=== PATIENT | male | born 1995 | race Caucasian/White ===

== ENCOUNTER → 2020-05-26 12:17 | Outpatient (BNVA) | payer OTHER, SELFPAY | PROVIDERS: Family Provider Family Medicine; PCP Family Medicine; Visit Provider Nurse Practitioner Family | DX: J02.9 Acute pharyngitis, unspecified (principal); J45.901 Unspecified asthma with (acute) exacerbation | CPT/HCPCS: 87071; 87880 ==

== ENCOUNTER → 2020-09-14 13:37 | Outpatient (BNVA) | payer OTHER, SELFPAY | PROVIDERS: Family Provider Family Medicine; PCP Family Medicine; Visit Provider Nurse Practitioner Family | DX: M79.672 Pain in left foot (principal) | CPT/HCPCS: 73630 ==

== ENCOUNTER → 2021-04-13 13:21 | Outpatient (BNVA) | payer OTHER, SELFPAY | PROVIDERS: Family Provider Family Medicine; PCP Family Medicine; Visit Provider Registered Nurse Neonatal Intensive Care | DX: M25.562 Pain in left knee (principal) | CPT/HCPCS: 73562 ==

== ENCOUNTER → 2022-06-06 11:26 | Outpatient (BNVA) | payer BC, SELFPAY | PROVIDERS: Family Provider Family Medicine; PCP Family Medicine; Visit Provider Emergency Medicine | DX: H93.90 Unspecified disorder of ear, unspecified ear (principal); H66.003 Acute suppurative otitis media without spontaneous rupture of ear drum, bilateral; J20.9 Acute bronchitis, unspecified | CPT/HCPCS: 87071; 87880 ==

== ENCOUNTER 2022-10-24 23:27 | Emergency (ER) | payer BC, SELFPAY ==
--- NOTE | 2022-10-24 23:29 | XRR_ITS ---
PROCEDURE INFORMATION: Exam: XR Right Hand Exam date and time: 10/24/2022 11:35 PM Age: 26 years old Clinical indication: Injury or trauma; Fall; Blunt trauma (contusions or hematomas); Hand; Right; Additional info: Right hand injury TECHNIQUE: Imaging protocol: Radiologic exam of the right hand. Views: 3 or more views. COMPARISON: No relevant prior studies available. FINDINGS: Bones/joints: Normal. Soft tissues: Normal. XR/XR hand RT min 3V* [id number] IMPRESSION: No acute findings.
[2022-10-24 23:42] VITALS: BP 162/97; PULSE 77; RESP 16; TEMP 36.6; O2SAT 94; BMI 37.3
[2022-10-25 02:00] VITALS: PULSE 80; RESP 16; O2SAT 94
[2022-10-25] MEDS: oxyCODONE-APAP 5-325 mg Tablet 2 TAB PO (02:08)
[2022-10-25 02:37] VITALS: PULSE 80; RESP 16; O2SAT 94
--- NOTE | 2022-10-25 22:33 | ED_ITS ---
HPI - Extremity Problem General: Chief complaint: Extremity Injury, Upper Stated complaint: RIGHT HAND INJURY Time Seen by Provider: 10/25/22 01:53 Source: patient History of Present Illness: 26 year old male comes in with a right hand injury. He states that he was working on something at home, and jammed his right thumb. His pain is mostly located over the right first MCP. It radiates proximally. MD Complaint: extremity pain Onset (ago): hour(s) Pain Consistency: constant Location: right and upper extremity (thumb) Quality: aching Radiation: proximal Relieving factors: immobilization Exacerbating factors: range of motion Associated symptoms: Deny chest pain, fever(s), rash or short of breath Review of Systems Const: Denies: fever(s) ENMT: Denies: throat pain Card: Denies: chest pain Resp: Denies: dyspnea GI: Denies: abdominal pain, nausea or vomiting Musc: Denies: neck pain Skin/Breast: Denies: rash PFSH ED PFSH: Social History Smoking and tobacco status: current every day smoker Alcohol intake: never Physical Exam Const: COMMON NORMALS: no acute distress GENERAL APPEARANCE: cooperative ORIENTATION/CONSCIOUSNESS: Yes awake HENMT: COMMON NORMALS: normocephalic and atraumatic HEAD & SCALP: normocephalic and atraumatic FACE & SINUS: normal facial exam Eye: COMMON NORMALS: Equal, round and reactive pupils present and EOMs intact bilaterally PUPIL: Yes Equal, round and reactive pupils present Chest: CHEST: Yes Symmetrical chest wall rise Resp: COMMON NORMALS: normal respiratory effort, No retractions and No use of accessory muscles Cardio: COMMON NORMALS: regular rate and regular rhythm RATE: regular rate RHYTHM: regular rhythm OTHER: 2+ RADIAL PULSE Neuro: SENSORY EXAM: Yes extremities (intact) Course Vital Signs: Vital signs: Vital Signs Temperature 97.8 F 10/24/22 23:42 Pulse Rate 80 10/25/22 02:37 Respiratory Rate 16 10/25/22 02:37 Blood Pressure 162/97 10/24/22 23:42 Pulse Oximetry 94 10/25/22 02:37 Oxygen Delivery Me thod 10/25/22 02:00 MDM - Extremity (Nontraumatic) Medical Decision Making X-ray reveals no fracture. His ligament of testing is guarded, but he may have an ulnar collateral ligament sprain. He'll be placed in a Julian brace immobilizing the thumb. And he'll stay in this until he follows up with his primary physician in a week or so. He is to return for any alarming symptoms. Lab Data Radiology Impressions Hand X-Ray 10/24/22 23:29 IMPRESSION: No acute findings. Discharge Plan Discharge Patient Disposition: Home Clinical Impression: Finger sprain Qualifiers: Encounter type: initial encounter Finger: thumb Sprain of finger site: metacarpophalangeal joint Laterality: right Qualified Code(s): S63.641A - Sprain of metacarpophalangeal joint of right thumb, initial encounter Condition: Stable Prescriptions: New ketorolac 10 mg tablet 10 mg PO TID PRN (Reason: pain) Qty: 10 0RF No Action albuterol sulfate 2.5 mg/0.5 mL solution for nebulization 2.5 mg inhalation ONCE Qty: 1 0RF neomycin-polymyxin B-dexameth [Maxitrol] 3.5mg/mL-10,000 unit/mL-0.1 % drops,suspension 1 drp ophthalmic (eye) Q3H Qty: 5 0RF Discharge Orders: Discharge ED (Routine); Ordered 10/25/22 Ordered By: Johnathon Leung Patient Instructions: Finger Sprain (ED) Activity Restrictions/Additional Instructions: Take the prescription you were given for your splints to a medical supply company (such as [facility] across the street from the hospital) to get filled. Wear the splint at all times except to shower until you see your doctor in follow- up. See your doctor in 1 week for repeat exam. ICE frequently, especially for the first 3 days. Coding Level of Care Code ED Injection Molding Machine Tender for José Fernández
--- NOTE | 2022-11-01 16:39 | DCPLANNER ---
10.30.22 - patient called due to no primary care physician - voicemail left for patient to return phone call. 10.31.22 - patient called due to no primary care physician - voicemail left for patient to return phone call.
== END 2022-10-25 02:11 | disposition home or self-care (01) ==
PROVIDERS: Emergency Provider Emergency Medicine
DX: S63.641A Sprain of metacarpophalangeal joint of right thumb, initial encounter (principal); W23.0XXA Caught, crushed, jammed, or pinched between moving objects, initial encounter
CPT/HCPCS: 73130; 99283

== ENCOUNTER → 2023-01-14 09:11 | Outpatient (BNVA) | payer BC, SELFPAY | PROVIDERS: PCP Family Medicine; Visit Provider Family Medicine | DX: Z68.36 Body mass index [BMI] 36.0-36.9, adult (principal) | CPT/HCPCS: 80053; 80061; 85025 ==

== ENCOUNTER → 2023-06-29 18:33 | Outpatient (BNVA) | payer BC, SELFPAY | PROVIDERS: PCP Family Medicine; Visit Provider Family Medicine | DX: R05.9 Cough, unspecified (principal); J06.9 Acute upper respiratory infection, unspecified; B96.89 Other specified bacterial agents as the cause of diseases classified elsewhere; R11.0 Nausea | CPT/HCPCS: 87400 ==

== ENCOUNTER 2024-03-12 18:03 | Emergency (ER) | payer BC, SELFPAY ==
[2024-03-12 18:04] VITALS: BP 153/101; PULSE 67; TEMP 36.4; O2SAT 98; BMI 38.0
--- NOTE | 2024-03-12 18:04 | ECG_ITS ---
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 Measurements Intervals [place] Rate: 69 P: 49 TX: 179 QRS: 56 QRSD: 105 T: 38 QT: 383 QTc: 413 Interpretive Statements SINUS RHYTHM POSSIBLE ANTERIOR MYOCARDIAL INFARCTION , OF INDETERMINATE AGE [30 ms Q WAVE IN V3/V4, OR R < 0.2 mV IN V4] INTERPRETATION BASED ON A DEFAULT AGE OF 40 YEARS No previous ECG available for comparison Electronically Signed On 03-13-2024 8:29:24 CDT by Ej Sandy M.D. [email or web address] [email or web address]/[id number] f
--- NOTE | 2024-03-12 18:06 | XRR_ITS ---
PROCEDURE INFORMATION: Exam: XR Chest Exam date and time: 03/12/2024 6:58 PM Age: 28 years old Clinical indication: Pain; Chest pressure; Additional info: Cp TECHNIQUE: Imaging protocol: Radiologic exam of the chest. Views: 1 view. COMPARISON: No relevant prior studies available. FINDINGS: Lungs: Unremarkable. No consolidation or mass. Pleural spaces: Unremarkable. No pleural effusion. No pneumothorax. Heart/Mediastinum: Unremarkable. No cardiomegaly. Bones/joints: Unremarkable. XR/XR chest 1V portable [id number] IMPRESSION: No acute findings.
[2024-03-12 18:20] LABS: Basophils % 0.2 %; Eosinophils % 0.2 %; Hematocrit 40.1 % (37-53); Lymphocytes # 1.2 10^3/uL (0.8-4.8); Lymphocytes % 19.6 %; Mean Corpuscular HGB Conc 34.4 g/dL (30-55); Mean Corpuscular Hemoglobin 30.4 pg (27-33); Mean Corpuscular Volume 88.3 fl (82-101); Monocytes # 0.4 10^3/uL (0.2-0.9); Monocytes % 7.1 %; Neutrophils % 72.6 %; Nucleated Red Blood Cells % 0 %; Platelet Count 142 10^3/cmm (157-399); Red Blood Count 4.54 10^6/uL (3.85-5.65); Red Cell Distribution Width 12.8 % (12.1-15.1); White Blood Count 5.92 10^3/uL (3.29-11.43)
[2024-03-12 18:40] LABS: Troponin(5th) Baseline 12 ng/L (0-15)
[2024-03-12 18:48] LABS: Alanine Aminotransferase 19 U/L (0-41); Albumin Level 3.7 g/dL (3.5-5.2); Alkaline Phosphatase 86 U/L (40-130); Anion Gap 13.6 (5-19); Aspartate Amino Transferase 18 U/L (0-40); Blood Urea Nitrogen 12 mg/dL (6-20); Calcium 8.7 mg/dL (8.5-10.5); Carbon Dioxide 26 mmol/L (22-29); Chloride 106 mmol/L (98-107); Creatinine Clr Calc Pharmacy 135.2256; Globulin 1.9 g/dL (1.3-4.6); Glomerular Filtration Rate 78.6 mL/min (90-130); Glucose 99 mg/dL (65-115); Lipase 31 U/L (13-60); Osmolality Calculated 294 mOsm/kg (285-295); Potassium 3.6 mmol/L (3.5-5.1); Sodium 142 mmol/L (136-145); Total Bilirubin 0.7 mg/dL (0.15-1.2); Total Protein 5.6 g/dL (6.6-8.7)
--- NOTE | 2024-03-12 20:06 | ECG_ITS ---
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 Measurements Intervals [place] Rate: 47 P: 36 MA: 172 QRS: 62 QRSD: 101 T: 60 QT: 427 QTc: 380 Interpretive Statements SINUS BRADYCARDIA Compared to ECG 03/12/2024 18:04:44 Sinus rhythm no longer present Myocardial infarct finding no longer present Electronically Signed On 03-13-2024 8:30:32 CDT by Ej Sandy M.D. [id number]
[2024-03-12 20:10] VITALS: BP 146/93; PULSE 65; RESP 18; O2SAT 95
[2024-03-12 20:22] LABS: Troponin 5 2HR 10.98 ng/L (0-15)
[2024-03-12 20:24] LABS: Troponin 5 2HR Delta -1.02 ABS# (0-10)
[2024-03-12 20:30] VITALS: BP 143/92; PULSE 59; RESP 19; O2SAT 93
[2024-03-12 20:31] LABS: D Dimer 0.43 ug/mLFEU (0-0.59)
--- NOTE | 2024-03-12 20:31 | ED_ITS ---
HPI - Chest Pain 2 General: Chief Complaint: Chest Pain Stated Complaint: CP/Tightmess Time Seen by Provider: 03/12/24 20:09 Source: patient Mode of arrival: ambulatory Limitations: no limitations History of Present Illness: 28-year-old male states manage some ches t pain shortness of breath since yesterday. He states that he been having pain with inspiration he had a slight cough and nausea he denies any fever states the pains he has been having is sharp in nature had some dyspnea as well. No recent travel no recent surgery. No history of DVT Associated symptoms: Reports dyspnea; Deny abdominal pain, fever(s), nausea or vomiting Review of Systems 2 Const: Denies: fever(s), chills, body aches or change in appetite ENMT: Denies: throat pain or dental pain Card: Reports: chest pain Resp: Reports: dyspnea GI: Denies: abdominal pain, nausea, vomiting or diarrhea : Denies: dysuria Musc: Denies: neck pain or back pain Skin/Breast: Denies: rash Neuro: Denies: headache(s) PFSH ED 2 PFSH: Medical History GERD (gastroesophageal reflux disease) Asthma Surgical History No pertinent past surgical history Family History Father Diabetes GERD (gastroesophageal reflux disease) Stroke Mother Chronic kidney disease (CKD) Cancer kidney Other CAD (coronary artery disease) Dementia Hyperlipidemia Hypertension Lung disease Denies family history of Clotting disorder Psychiatric illness Anesthesia complication Bleeding disorder Social History Smoking and tobacco/nicotine status: current every day tobacco/nicotine user Quit status (tobacco/nicotine): has quit using Former quit date comment: 01/2023 Alcohol intake: never Substance/Drug Use: never Lives independently: Yes Marital status: Number of children: 2 Current occupational status: employed Current occupation: [employer] Special terrie needs: No Agree to transfusion: Yes Physical Exam 2 Const: COMMON NORMALS: no acute distress, patient oriented x3 and healthy appearing HENMT: COMMON NORMALS: normocephalic and atraumatic HEAD & SCALP: n ormocephalic and atraumatic Neck/C-Spine: COMMON NORMALS: full ROM and supple Chest: COMMONS NORMALS: normal inspection of the chest Resp: COMMON NORMALS: normal respiratory effort, No retractions, No use of accessory muscles and clear to auscultation bilaterally AUSCULTATION: clear to auscultation bilaterally Cardio: COMMON NORMALS: regular rate, regular rhythm and No murmurs present (Cardio) RATE: regular rate RHYTHM: regular rhythm GI: COMMON NORMALS: Normal to inspection, nondistended, normoactive bowel sounds present, Soft to palpation, non-tender and no masses PALPATION: Yes Soft to palpation Extremity: COMMON NORMALS: normal to inspection and full ROM Neuro: COMMON NORMALS: patient oriented x3, moves all extremities and no focal motor deficits Psych: COMMON NORMALS: mental status grossly normal, Normal thought process present and cooperative THOUGHT PROCESS: Normal thought process present Skin: COMMON NORMALS: no rashes or lesions noted and no wounds GENERAL SKIN EXAM: no rashes or lesions noted Course 2 Vital Signs: Vital signs: Vital Signs Temperature 97.5 F L 03/12/24 18:04 Pulse Rate 67 03/12/24 18:04 Blood Pressure 153/101 03/12/24 18:04 Pulse Oximetry 98 03/12/24 18:04 Oxygen Delivery Me thod Room Air 03/12/24 18:04 MDM - Chest Pain Medical Decision Making Patient presents here with chest pains atypical in nature is likely pleuritic in nature D-dimer troponins here are negative x-ray shows no signs of pneumonia patient stable for discharge she is to follow-up with PCP and return if worsening. Medical Records I reviewed the patient's medical records. Lab Data I reviewed the patient's lab results. 03/12/24 18:15 03/12/24 18:15 Radiology Impressions Chest X-Ray 03/12/24 18:06 IMPRESSION: No acute findings. Laboratory Results WBC 5.92 10^3/uL (3.29-11.43) 03/12/24 18:15 RBC 4.54 10^6/uL (3.85-5.65) 03/12/24 18:15 Hgb 13.80 g/dL (11.27-16.99) 03/12/24 18:15 Hct 40.1 % (37-53) 03/12/24 18:15 MCV 88.3 fl (82-101) 03/12/24 18:15 MCH 30.4 pg (27-33) 03/12/24 18:15 MCHC 34.4 g/dL (30-55) 03/12/24 18:15 RDW 12.8 % (12.1-15.1) 03/12/24 18:15 Plt Count 142 10^3/cmm (157-399) L 03/12/24 18:15 MPV 10.0 fL (7.4-10.4) 03/12/24 18:15 Neut % (Auto) 72.6 % 03/12/24 18:15 Lymph % (Auto) 19.6 % 03/12/24 18:15 [place] % (Auto) 7.1 % 03/12/24 18:15 Eos % (Auto) 0.2 % 03/12/24 18:15 Baso % (Auto) 0.2 % 03/12/24 18:15 Neut # (Auto) 4.30 10^3/uL (1.8-7.7) 03/12/24 18:15 Lymph # (Auto) 1.2 10^3/uL (0.8-4.8) 03/12/24 18:15 [place] # (Auto) 0.4 10^3/uL (0.2-0.9) 03/12/24 18:15 Eos # (Auto) 0.0 10^3/uL (0.0-0.8) 03/12/24 18:15 Baso # (Auto) 0.0 10^3/uL (0.0-0.1) 03/12/24 18:15 Nucleated RBC % (auto) 0 % 03/12/24 18:15 Nucleated RBCs # 0.0 /100WBC 03/12/24 18:15 D-Dimer 0.43 ug/mLFEU (0-0.59) 03/12/24 18:15 Sodium 142 mmol/L (136-145) 03/12/24 18:15 Potassium 3.6 mmol/L (3.5-5.1) 03/12/24 18:15 Chloride 106 mmol/L (98-107) 03/12/24 18:15 Carbon Dioxide 26 mmol/L (22-29) 03/12/24 18:15 Anion Gap 13.6 (5-19) 03/12/24 18:15 BUN 12 mg/dL (6-20) 03/12/24 18:15 Creatinine 1.1 mg/dL (0.7-1.2) 03/12/24 18:15 GFR Calculation 78.6 mL/min (90-130) L 03/12/24 18:15 Glucose 99 mg/dL (65-115) 03/12/24 18:15 Calculated Osmolality 294 mOsm/kg (285-295) 03/12/24 18:15 Calcium 8.7 mg/dL (8.5-10.5) 03/12/24 18:15 Total Bilirubin 0.7 mg/dL (0.15-1.2) 03/12/24 18:15 AST 18 U/L (0-40) 03/12/24 18:15 ALT 19 U/L (0-41) 03/12/24 18:15 Alkaline Phosphatase 86 U/L (40-130) 03/12/24 18:15 Troponin T Baseline 12 ng/L (0-15) 03/12/24 18:15 Troponin T 120 Minute 10.98 ng/L (0-15) 03/12/24 20:01 Delta Troponin T -1.02 ABS# (0-10) L 03/12/24 20:01 Total Protein 5.6 g/dL (6.6-8.7) L 03/12/24 18:15 Albumin 3.7 g/dL (3.5-5.2) 03/12/24 18:15 Globulin 1.9 g/dL (1.3-4.6) 03/12/24 18:15 Lipase 31 U/L (13-60) 03/12/24 18:15 SARS-CoV-2 Ag (Rapid) negative (Negative) 03/12/24 21:32 All radiology interpretation(s) finalized by discharge EKG Data EKG 1: I personally reviewed and interpreted this EKG as follows: EKG interpretation date: 03/12/24 EKG interpretation time: 22:10 Interpretation: sinus carmencita hr [address] elevation qrs 101 qtc 390 Discharge Plan Discharge Patient Disposition: Home Clinical Impression: Chest pain Condition: Stable Prescriptions: No Action fluticasone propion-salmeterol [Advair Diskus] 250-50 mcg/dose blister with device 1 inh inhalation BID Qty: 60 1RF omeprazole 40 mg capsule,delayed release(DR/EC) 40 mg PO DAILY Qty: 30 1RF albuterol sulfate [Ventolin HFA] 90 mcg/actuation HFA aerosol inhaler 2 puff inhalation QID Qty: 6.7 0RF famotidine [Pepcid] 40 mg tablet 40 mg PO BID 10 Days Qty: 20 0RF sulfamethoxazole-trimethoprim [Bactrim DS] 800-160 mg tablet 1 tab PO BID 7 Days Qty: 14 0RF Discharge Orders: Discharge ED (Routine); Ordered 03/12/24 Ordered By: Gil Farley Referrals: Chris Bunch MD [Primary Care Provider] - Discharge Diet: Advance as tolerated Discharge Activity: Resume usual activity Patient Instructions: Chest Pain (ED) Coding Level of Care Code ED Senior Power Scheduler for José Fernández
[2024-03-12 21:00] VITALS: BP 131/97; PULSE 65; RESP 20; O2SAT 96
[2024-03-12] MEDS: sodium chloride 0.9% 1,000 ML 999 ML IV (21:06)
[2024-03-12] MEDS: ondansetron 2 mg/ML SDV 2 mL 4 MG IVP (21:06)
[2024-03-12 21:30] VITALS: BP 145/95; PULSE 62; RESP 14; O2SAT 95
[2024-03-12 21:58] LABS: SARS Covid-2 Antigen negative (Negative)
[2024-03-12 22:00] VITALS: BP 141/95; PULSE 62; RESP 17; O2SAT 94
== END 2024-03-12 22:27 | disposition home or self-care (01) ==
PROVIDERS: Emergency Provider Emergency Medicine; PCP Family Medicine
DX: R07.9 Chest pain, unspecified (principal); R00.1 Bradycardia, unspecified; Z72.0 Tobacco use
CPT/HCPCS: 36415; 71045; 80053; 83690; 84484; 85025; 85378; 87426; 93005; 96374; 99285; J2405; J7030

== ENCOUNTER 2024-07-22 13:18 | Emergency (ER) | payer BC, SELFPAY ==
[2024-07-22 13:24] VITALS: PULSE 95; RESP 15; O2SAT 97; BMI 38.0
[2024-07-22] MEDS: HYDROcodone-acetaminophen 7.5-325 mg Tablet 2 TAB PO (13:50)
--- NOTE | 2024-07-22 13:50 | W.ED.DENTAL ---
Documented by User: [email or web address] Cardenas 07/22/24 13:55 HPI - Dental/Oral General: Chief complaint: Dental/Oral Stated complaint: tooth pain Time Seen by Provider: 07/22/24 13:34 Source: patient and family Mode of arrival: ambulatory Limitations: no limitations History of Present Illness: Patient is a 28-year-old male who presents the emergency department with left lower dental pain over the past few days. He states he did see his dentist for this, but they were unable to pull his tooth and he was told to find a dentist that could pull it. Family in the room states this has been difficult due to insurance purposes, they are here for pain control. Patient is reporting that his left face is swelling and this is extending towards his ear and down his left neck. States he has dealt with pain chronically but it is much worse, 05/31. He is denying any difficulty breathing, tongue or throat swelling, or sensation of throat closing. No fevers, chills, nausea or vomiting. Denies any recent antibiotic use. No recent trauma. MD Complaint: tooth pain Onset (ago): day(s) Duration: constant Severity: severe Severity scale (1-10): 10 Relieving factors: nothing Context: history of dental caries and poor dental care Associated symptoms: Reports ear or mastoid pain; Denies fever(s) or odynophagia Treatment prior to arrival: none Related Data Previous Rx's Medication Instructions Recorded fluticasone 250 mcg-salmeterol 50 1 inh inhalation BID #60 ea 02/11/23 mcg/dose blistr powdr for inhalation (Advair Diskus) omeprazole 40 mg capsule,delayed 40 mg PO DAILY #30 caps 02/11/23 release albuterol sulfate 90 mcg/actuation 2 puff inhalation QID #6.7 grams 06/29/23 aerosol inhaler (Ventolin HFA) famotidine 40 mg tablet (Pepcid) 40 mg PO BID 10 days #20 tabs 11/22/23 sulfamethoxazole 800 1 tab PO BID 7 days #14 tabs 02/15/24 mg-trimethoprim 160 mg tablet (Bactrim DS) amoxicillin 875 mg-potassium 1 tab PO BID 10 days #20 tabs 07/22/24 clavulanate 125 mg tablet prednisone 20 mg tablet 60 mg (3 x 20 mg) PO ONCE 5 days 07/22/24 #15 tabs Allergies Allergy/AdvReac Type Severity Reaction Status Date / Time ibuprofen Allergy RASH Verified 03/12/24 18:10 venom-wasp Allergy swells, Verified 03/12/24 18:10 anaphylactic sunscreen Allergy rash and Uncoded 03/12/24 18:10 itch Review of Systems General: Reports: 10 or more systems reviewed and unremarkable except in HPI and below Const: Denies: fever(s), chills or fatigue Eyes: Denies: change in vision ENMT: Reports: dental pain, ear or mastoid pain, sinus pain and other (Facial swelling); Denies: throat pain, uvular edema or odynophagia Card: Denies: chest pain, palpitations, swelling of feet/ankles or lightheadedness Resp: Denies: dyspnea, productive cough or wheezing GI: Denies: abdominal pain, nausea, vomiting, diarrhea or constipation : Denies: flank pain, difficulty urinating, dysuria or urinary frequency Musc: Reports: neck pain; Denies: back pain or joint pain Skin/Breast: Denies: rash Neuro: Denies: headache(s), numbness in extremities or weakness in extremities PFSH ED PFSH: Medical History GERD (gastroesophageal reflux disease) Asthma Surgical History No pertinent past surgical history Family History Father Diabetes GERD (gastroesophageal reflux disease) Stroke Mother Chronic kidney disease (CKD) Cancer kidney Other CAD (coronary artery disease) Dementia Hyperlipidemia Hypertension Lung disease Denies family history of Clotting disorder Psychiatric illness Anesthesia complication Bleeding disorder Social History Smoking and tobacco/nicotine status: current every day tobacco/nicotine user Quit status (tobacco/nicotine): has quit using Former quit date comment: 01/2023 Alcohol intake: never Substance/Drug Use: never Lives independently: Yes Marital status: Number of children: 2 Current occupational status: employed Current occupation: [employer] Special terrie needs: No Agree to transfusion: Yes Physical Exam Const: COMMON NORMALS: patient oriented x3, no limitations, alert and well nourished ORIENTATION/CONSCIOUSNESS: Yes awake OTHER: Appears uncomfortable, overall nontoxic-appearing HENMT: COMMON NORMALS: normocephalic, atraumatic, hearing grossly normal bilaterally, external ears normal, Normal nasal mucous membranes and turbinates present, moist oral mucous membranes and oropharynx normal HEAD & SCALP: normocephalic and atraumatic NOSE: Normal nasal mucous membranes and turbinates present EXTERNAL EAR: Yes external ears normal TEETH & GINGIVA: Yes abnormal tooth and associated gingiva lower left third molar tender, with associated gingival edema and enamel fractured, Yes caries, Yes multiple restorations and Yes poor dentition THROAT: posterior oropharynx normal, tonsils normal and uvula midline; no uvular edema OTHER: No facial swelling Neck/C-Spine: COMMON NORMALS: full ROM, no lymphadenopathy and no meningeal signs OTHER: Reproducible tenderness to palpation along the left SCM Resp: COMMON NORMALS: normal respiratory effort, No retractions, No use of accessory muscles and clear to auscultation bilaterally AUSCULTATION: clear to auscultation bilaterally Cardio: COMMON NORMALS: regular rate, regular rhythm, S1 normal heart sound present, S2 normal heart sound present, No gallops present (Cardio), No murmurs present (Cardio) and No rub (Cardio) RATE: regular rate RHYTHM: regular rhythm HEART SOUNDS: S1 normal heart sound present and S2 normal heart sound present Extremity: COMMON NORMALS: normal to inspection and full ROM Neuro: COMMON NORMALS: patient oriented x3 SENSORIUM/ORIENTATION: Yes alert MENINGEAL SIGNS: Yes no meningeal signs Skin: COMMON NORMALS: no rashes or lesions noted GENERAL SKIN EXAM: no rashes or lesions noted Course Vital Signs: Vital signs: Vital Signs Pulse Rate 88 07/22/24 14:01 Respiratory Rate 15 07/22/24 13:24 Blood Pressure 141/85 07/22/24 14:01 Pulse Oximetry 96 07/22/24 14:01 Oxygen Delivery Me thod Room Air 07/22/24 13:24 MDM - Dental/Oral Medical Decision Making Patient is presenting with signs and symptoms of a dental abscess. Has been followed by dentist and attempted to have the affected tooth removed, but he is stating that they were unable to remove it and told him to follow-up with dentist or oral surgeon who could. Pain severely increased today, and with the facial pain and reported swelling will start him on antibiotics and steroids. Gave him a dose of [place] here as his mom was driving, and told him that he does need to follow-up with someone that can pull his tooth that is causing the pain. He had no concerning findings for oropharyngeal swelling or respiratory compromise, and thus will be discharged home with proper return precautions. No radiology studies performed this visit Discharge Plan Discharge Patient Disposition: Home Clinical Impression: Dental abscess Condition: Stable Prescriptions: New prednisone 20 mg tablet 60 mg PO ONCE 5 Days Qty: 15 0RF amoxicillin-pot clavulanate 875-125 mg tablet 1 tab PO BID 10 Days Qty: 20 0RF No Action fluticasone propion-salmeterol [Advair Diskus] 250-50 mcg/dose blister with device 1 inh inhalation BID Qty: 60 1RF omeprazole 40 mg capsule,delayed release(DR/EC) 40 mg PO DAILY Qty: 30 1RF albuterol sulfate [Ventolin HFA] 90 mcg/actuation HFA aerosol inhaler 2 puff inhalation QID Qty: 6.7 0RF famotidine [Pepcid] 40 mg tablet 40 mg PO BID 10 Days Qty: 20 0RF sulfamethoxazole-trimethoprim [Bactrim DS] 800-160 mg tablet 1 tab PO BID 7 Days Qty: 14 0RF Discharge Orders: Discharge ED (Routine); Ordered 07/22/24 Ordered By: Kleber Pratt Referrals: Chris Bunch MD [Primary Care Provider] - Patient Instructions: Dental Abscess (ED) Activity Restrictions/Additional Instructions: Please get in with dentist or oral surgeon in regards to tooth removal. In the meantime, take antibiotics and steroids as prescribed. Tylenol at home for pain relief. If you start having any difficulty breathing, sensation of tongue or throat swelling, or other concerning symptoms please return to the emergency department. 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 [employer] Documented by User: Justin Marie DO 07/23/24 14:10 HPI - Dental/Oral General: Chief complaint: Dental/Oral Stated complaint: tooth pain Time Seen by Provider: 07/22/24 13:34 Related Data Previous Rx's Medication Instructions Recorded fluticasone 250 mcg-salmeterol 50 1 inh inhalation BID #60 ea 02/11/23 mcg/dose blistr powdr for inhalation (Advair Diskus) omeprazole 40 mg capsule,delayed 40 mg PO DAILY #30 caps 02/11/23 release albuterol sulfate 90 mcg/actuation 2 puff inhalation QID #6.7 grams 06/29/23 aerosol inhaler (Ventolin HFA) famotidine 40 mg tablet (Pepcid) 40 mg PO BID 10 days #20 tabs 11/22/23 sulfamethoxazole 800 1 tab PO BID 7 days #14 tabs 02/15/24 mg-trimethoprim 160 mg tablet (Bactrim DS) amoxicillin 875 mg-potassium 1 tab PO BID 10 days #20 tabs 07/22/24 clavulanate 125 mg tablet prednisone 20 mg tablet 60 mg (3 x 20 mg) PO ONCE 5 days 07/22/24 #15 tabs Allergies Allergy/AdvReac Type Severity Reaction Status Date / Time ibuprofen Allergy RASH Verified 03/12/24 18:10 venom-wasp Allergy swells, Verified 03/12/24 18:10 anaphylactic sunscreen Allergy rash and Uncoded 03/12/24 18:10 itch PFSH ED PFSH: Medical History GERD (gastroesophageal reflux disease) Asthma Surgical History No pertinent past surgical history Family History Father Diabetes GERD (gastroesophageal reflux disease) Stroke Mother Chronic kidney disease (CKD) Cancer kidney Other CAD (coronary artery disease) Dementia Hyperlipidemia Hypertension Lung disease Denies family history of Clotting disorder Psychiatric illness Anesthesia complication Bleeding disorder Social History Smoking and tobacco/nicotine status: current every day tobacco/nicotine user Quit status (tobacco/nicotine): has quit using Former quit date comment: 01/2023 Alcohol intake: never Substance/Drug Use: never Lives independently: Yes Marital status: Number of children: 2 Current occupational status: employed Current occupation: [employer] Special terrie needs: No Agree to transfusion: Yes Course Vital Signs: Vital signs: Vital Signs Pulse Rate 88 07/22/24 14:01 Respiratory Rate 15 07/22/24 13:24 Blood Pressure 141/85 07/22/24 14:01 Pulse Oximetry 96 07/22/24 14:01 Oxygen Delivery Me thod Room Air 07/22/24 13:24 MDM - Dental/Oral Medical Decision Making Patient is presenting with signs and symptoms of a dental abscess. Has been followed by dentist and attempted to have the affected tooth removed, but he is stating that they were unable to remove it and told him to follow-up with dentist or oral surgeon who could. Pain severely increased today, and with the facial pain and reported swelling will start him on antibiotics and steroids. Gave him a dose of [place] here as his mom was driving, and told him that he does need to follow-up with someone that can pull his tooth that is causing the pain. He had no concerning findings for oropharyngeal swelling or respiratory compromise, and thus will be discharged home with proper return precautions. Chart reviewed Discharge Plan Discharge Patient Disposition: Home Clinical Impression: Dental abscess Condition: Stable Prescriptions: New prednisone 20 mg tablet 60 mg PO ONCE 5 Days Qty: 15 0RF amoxicillin-pot clavulanate 875-125 mg tablet 1 tab PO BID 10 Days Qty: 20 0RF No Action fluticasone propion-salmeterol [Advair Diskus] 250-50 mcg/dose blister with device 1 inh inhalation BID Qty: 60 1RF omeprazole 40 mg capsule,delayed release(DR/EC) 40 mg PO DAILY Qty: 30 1RF albuterol sulfate [Ventolin HFA] 90 mcg/actuation HFA aerosol inhaler 2 puff inhalation QID Qty: 6.7 0RF famotidine [Pepcid] 40 mg tablet 40 mg PO BID 10 Days Qty: 20 0RF sulfamethoxazole-trimethoprim [Bactrim DS] 800-160 mg tablet 1 tab PO BID 7 Days Qty: 14 0RF Discharge Orders: Discharge ED (Routine); Ordered 07/22/24 Ordered By: Kleber Pratt Referrals: Chris Bunch MD [Primary Care Provider] - Patient Instructions: Dental Abscess (ED) Activity Restrictions/Additional Instructions: Please get in with dentist or oral surgeon in regards to tooth removal. In the meantime, take antibiotics and steroids as prescribed. Tylenol at home for pain relief. If you start having any difficulty breathing, sensation of tongue or throat swelling, or other concerning symptoms please return to the emergency department. 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
[2024-07-22 14:01] VITALS: BP 141/85; PULSE 88; O2SAT 96
== END 2024-07-22 14:02 | disposition home or self-care (01) ==
PROVIDERS: Emergency Provider Physician Assistant; PCP Family Medicine
DX: K04.7 Periapical abscess without sinus (principal); Z72.0 Tobacco use
CPT/HCPCS: 99283

== ENCOUNTER → 2024-09-24 13:18 | Outpatient (BNVA) | payer BC, SELFPAY | PROVIDERS: PCP Family Medicine | DX: R05.9 Cough, unspecified (principal); K52.9 Noninfective gastroenteritis and colitis, unspecified | CPT/HCPCS: 87400 ==

== ENCOUNTER → 2025-05-29 06:56 | Outpatient (BNVA) | payer BC, SELFPAY | PROVIDERS: PCP Family Medicine; Visit Provider Podiatrist Foot & Ankle Surgery | DX: M79.671 Pain in right foot (principal); Q66.11 Congenital talipes calcaneovarus, right foot; M77.41 Metatarsalgia, right foot; Q74.2 Other congenital malformations of lower limb(s), including pelvic girdle | CPT/HCPCS: 73630 ==

== ENCOUNTER → 2025-06-05 11:26 | Outpatient (BNVA) | payer BC, SELFPAY | PROVIDERS: PCP Family Medicine; Visit Provider Family Medicine | DX: I10 Essential (primary) hypertension (principal) | CPT/HCPCS: 80053; 80061; 83036; 84439; 84443; 85025 ==